=== PATIENT | male | born 1935 | race Caucasian/White ===

== ENCOUNTER 2022-02-18 16:09 | Inpatient (IN) ==
[2022-02-18 16:40] LABS: POC Blood Urea Nitrogen 41 (6-20); POC Calcium, Ionized 1.08 (1.16-1.32); POC Chloride 87 (96-108); POC Creatinine 3.9 (0.6-1.2); POC Glucose, Random > 700 (70-105); POC Potassium 3.3 (3.3-5.1); POC Sodium 127 (133-145)
[2022-02-18] MEDS ORDERED: 0.9 % SODIUM CHLORIDE 1,000 ML IV ONE ×2 (16:45→17:04)
[2022-02-18 18:03] LABS: Basophils # (Auto) 0.03 K/mcL (0.00-0.30); Basophils % (Auto) 0.3 % (0.0-2.0); Eosinophils # (Auto) 0.11 K/mcL (0.00-0.70); Eosinophils % (Auto) 1.2 % (0.0-7.0); Hematocrit 34.7 % (40.1-51.0); Hemoglobin 12.8 g/dL (13.7-17.5); Lymphocytes # (Auto) 0.96 K/mcL (1.50-4.80); Lymphocytes % (Auto) 10.5 % (15.5-49.0); Mean Cell Volume 102.4 fL (80.0-100.0); Mean Corpuscular HGB Conc 36.9 g/dL (31.0-36.0); Mean Platelet Volume 9.8 fL (7.4-10.4); Monocytes # (Auto) 0.43 K/mcL (0.10-0.90); Monocytes % (Auto) 4.7 % (1.0-12.0); Platelet Count 590 K/mcL (140-440); RBC 3.39 M/mcL (4.63-6.08); Red Cell Distribution Width 13.4 % (11.5-14.5); WBC 9.2 K/mcL (4.5-11.0)
--- NOTE | 2022-02-18 18:03 | Emergency Department Note ---
HPI General Chief complaint: Blood Sugar Problem Stated complaint: high blood sugar Time Seen by Provider: 02/18/22 16:44 Source: patient Mode of arrival: ambulatory Limitations: no limitations History of Present Illness HPI Narrative: Narrative: Patient presents ED with complaints of generalized weakness for the past 4 days. Patient that he just does not feel like himself. He denies fever, chills, nausea, vomiting, abdominal pain, cardiac chest pain, heart palpitations, shortness of breath, cough, sputum production, diarrhea, dysuria, hematuria, urinary frequency. He denies [id number] medication. He denies any other alleviating or aggravating factors. Related Data Home Medications Medication Instructions Recorded Confirmed omeprazole 20 mg capsule,delayed 20 mg PO .QDAY before a meal 01/17/15 02/18/22 release aspirin 81 mg tablet,delayed 81 mg PO QDAY 11/25/16 02/18/22 release (Aspir-) hydroxyurea 500 mg capsule 500 mg PO .COMPLEX 12/30/18 02/18/22 Previous Rx's Medication Instructions Recorded hydrochlorothiazide 25 mg tablet 25 mg PO QDAY #90 tabs 08/23/21 lorazepam 1 mg tablet See Rx Instructions .Route 12/03/21 .COMPLEX #60 tabs levothyroxine 50 mcg tablet 50 mcg PO QAM #90 tabs 01/02/22 losartan 50 mg tablet 50 mg PO QDAY #90 tabs 01/02/22 Allergies Allergy/AdvReac Type Severity Reaction Status Date / Time ciprofloxacin [From Cipro] Allergy Unknown Unknown Verified 02/18/22 16:17 hydrocodone Allergy Unknown Unknown Verified 02/18/22 16:17 Imipramine AdvReac Intermediate Other Verified 02/18/22 16:17 oxycodone [From OxyContin] AdvReac Confusion Verified 02/18/22 16:17 Review of Systems ROS ROS Narrative: Narrative: All systems ED: reviewed and negative except as stated. [facility] Narrative Patient History Narrative: Narrative: Medical/Surgical/Family History All Active Problems (Updated 02/18/22 @ 20:23 by Yandy Cruz MD) Hypokalemia (Acute) Acute hyperglycemia (Acute) Hyperosmolar hyperglycemic state (HHS) (Acute) DKA (diabetic ketoacidosis) (Acute) Acute hypokalemia (Acute) Generalized weakness (Acute) Paronychia (Acute) Thrombocytopenia (Chronic) Medicare annual wellness visit, subsequent (Acute) 23-polyvalent pneumococcal polysaccharide vaccine declined (Chronic) Refused influenza vaccine (Chronic) Hypothyroid (Chronic) Nephrolithiasis (Acute) Kidney stone (Acute) Urinary tract infection (Acute) Urolithiasis (Acute) Urolithiasis (Acute) Ureteral calculus (Acute) Prostate cancer (Chronic) Osteoarthritis (Chronic) Malignant melanoma of skin (Chronic) Kidney stones (Chronic) Hypertension, essential (Chronic) Hyperlipidemia (Chronic) Gastroesophageal reflux (Chronic) History of colonic polyps (Chronic) Basal cell carcinoma (Chronic) Anxiety disorder (Chronic) Medical History 23-polyvalent pneumococcal polysaccharide vaccine declined Acute renal failure Anxiety disorder Basal cell carcinoma Gastroesophageal reflux History of colonic polyps Hyperlipidemia Hypertension, essential Kidney stone Kidney stones Malignant melanoma of skin Medicare annual wellness visit, subsequent Nephrolithiasis Osteoarthritis Prostate cancer Refused influenza vaccine Thrombocytopenia Ureteral calculus Urinary tract infection Urolithiasis Urolithiasis Surgical History History of colonoscopy (04/29/13) History of radical prostatectomy radiation tx History of skin cancer melanoma L cheek S/P prostatectomy Family History Mother , at 70y Malignant neoplasm of breast Father , at 70y Malignant neoplasm of lung Other Hypertension Kidney stone Prostate cancer Social History Smoking Status: Never smoker Alcohol Intake Frequency: holiday/special occasion only Substance Use: does not use Exam Narrative Narrative: Narrative: General Limitations: no limitations General appearance: Present alert Head Head: Present atraumatic and normocephalic Eye Eye: Present PERRL and EOMI ENT ENT: Present normal oropharynx and mucous membranes dry Neck Neck: Present full ROM; Absent meningismus Respiratory Respiratory: Present normal lung sounds bilaterally; Absent respiratory distress Cardiovascular Cardiovascular: Present regular rate and normal rhythm Adbominal Abdominal: Present soft and normal bowel sounds; Absent tenderness Back Back: Absent CVA tenderness (R) or CVA tenderness (L) Neurological Neurological: Present oriented X3 and normal gait Psychiatric Psychiatric: Present normal affect and normal mood Skin Skin: Present warm (WNL), intact and normal color Course Course Course Narrative: Patient was evaluated for generalized weakness. Labs show that patient's blood sugar was greater than 800. He reviewed denies any history of diabetes. Patient was given IV fluids and 10 units of insulin. His blood sugar did correc t down to about 470. Labs show that he was hypokalemic down to 2.5 so he was started on IV potassium replacement. Case was discussed with hospitalist who has agreed to admit the patient. Plan was discussed with patient and his daughter who is at bedside and they are agreement with plan for admission Reevaluation(s) Reevaluation #1: Patient remains hemodynamic stable. No new complaints at this time Time: 17:36 Consultations Consultation #1: Case discussed with hospitalist will come to evaluate the patient for admission for DKA with hypokalemia Time: 19:47 Vital Signs Vital signs: Vital Signs Temperature 97.7 F 02/18/22 16:15 Pulse Rate 80 02/18/22 16:15 Respiratory Rate 16 02/18/22 16:15 Blood Pressure 143/64 02/18/22 16:15 Pulse Oximetry (%) 97 02/18/22 16:15 Oxygen Delivery Method 02/18/22 16:15 Temperature 98.3 F 02/19/22 00:01 Pulse Rate 70 02/19/22 00:01 Respiratory Rate 21 02/19/22 00:01 Blood Pressure 141/67 02/19/22 00:01 Pulse Oximetry (%) 100 02/19/22 00:01 Oxygen Delivery Method 02/18/22 20:46 MDM MDM Narrative Medical decision making narrative: Narrative: Differential Diagnosis Differential Diagnosis: Sepsis, dehydration, DKA, viral infection Medical Records Medical records reviewed: Yes I reviewed the patient's medical records. Lab Data Lab results reviewed: Yes I reviewed the patient's lab results. Result diagrams: 02/18/22 17:04 02/18/22 19:30 Labs: Lab Results 02/18/22 02/18/22 02/18/22 Range/Units 16:36 16:39 17:04 WBC 9.2 (4.5-11.0) K/mcL RBC 3.39 L (4.63-6.08) M/mcL Hgb 12.8 L (13.7-17.5) g/dL Hct 34.7 L (40.1-51.0) % POC Hct 39.0 L (41-55) MCV 102.4 H (80.0-100.0) fL MCH 37.8 H (26.0-34.0) pg MCHC 36.9 H (31.0-36.0) g/dL RDW 13.4 (11.5-14.5) % Plt Count 590 H (140-440) K/mcL MPV 9.8 (7.4-10.4) fL Immature Gran % (Auto) 0.3 (0.0-0.5) % Neut % (Auto) 83.0 H (38.0-78.0) % Lymph % (Auto) 10.5 L (15.5-49.0) % Troup % (Auto) 4.7 (1.0-12.0) % Eos % (Auto) 1.2 (0.0-7.0) % Baso % (Auto) 0.3 (0.0-2.0) % Lymph # (Auto) 0.96 L (1.50-4.80) K/mcL Troup # (Auto) 0.43 (0.10-0.90) K/mcL Eos # (Auto) 0.11 (0.00-0.70) K/mcL Baso # (Auto) 0.03 (0.00-0.30) K/mcL Immature Gran # 0.03 (0.00-0.05) K/mcl Absolute Neutrophils 7.63 (1.80-8.00) K/mcL POC VBG pH 7.45 H (7.32-7.42) POC VBG pCO2 at Temp 40.4 L (41-51) POC VBG pO2 40 (25-40) POC VBG HCO3 28.0 (24-28) POC VBG Total CO2 29.0 (25-29) POC Venous O2 Sat 77.0 H (40-70) POC VBG Base Excess 4.0 H* (-2-2) VBG Lactic Acid 2.1 H (0.5-2) POC Sodium 127 L (133-145) Sodium (133-145) mmol/L POC Potassium 3.3 (3.3-5.1) Potassium (3.3-5.1) mmol/L POC Chloride 87 L (96-108) Chloride (96-108) mmol/L Carbon Dioxide (22-30) mmol/L POC Total CO2 30.0 (22-30) Anion Gap (8.0-16.0) POC BUN 41 H (6-20) BUN (8-23) mg/dL Creatinine (0.7-1.2) mg/dL POC Creatinine 3.9 H (0.6-1.2) GFR Calculation Glucose (70-105) mg/dL POC Glucose > 700 H* (70-105) Hemoglobin A1c (4.0-6.0) % Hgb Estim Average Glucose mg/dL Osmolality (280-300) mOSM/kg Calcium (8.6-10.4) mg/dL POC WB Ioniz Calcium 1.08 L (1.16-1.32) Magnesium (1.6-2.5) mg/dL Total Bilirubin (0.1-1.0) mg/dL AST (<40) U/L ALT (<40) U/L Alkaline Phosphatase (39-117) U/L Total Protein (5.9-8.4) gm/dL Albumin (3.2-5.2) gm/dL Globulin (2.2-3.7) gm/dL Albumin/Globulin Ratio (1.0-2.3) 02/18/22 02/18/22 02/18/22 Range/Units 17:04 17:04 19:15 WBC (4.5-11.0) K/mcL RBC (4.63-6.08) M/mcL Hgb (13.7-17.5) g/dL Hct (40.1-51.0) % POC Hct (41-55) MCV (80.0-100.0) fL MCH (26.0-34.0) pg MCHC (31.0-36.0) g/dL RDW (11.5-14.5) % Plt Count (140-440) K/mcL MPV (7.4-10.4) fL Immature Gran % (Auto) (0.0-0.5) % Neut % (Auto) (38.0-78.0) % Lymph % (Auto) (15.5-49.0) % Troup % (Auto) (1.0-12.0) % Eos % (Auto) (0.0-7.0) % Baso % (Auto) (0.0-2.0) % Lymph # (Auto) (1.50-4.80) K/mcL Troup # (Auto) (0.10-0.90) K/mcL Eos # (Auto) (0.00-0.70) K/mcL Baso # (Auto) (0.00-0.30) K/mcL Immature Gran # (0.00-0.05) K/mcl Absolute Neutrophils (1.80-8.00) K/mcL POC VBG pH 7.35 (7.32-7.42) POC VBG pCO2 at Temp 47.8 (41-51) POC VBG pO2 19 L (25-40) POC VBG HCO3 26.1 (24-28) POC VBG Total CO2 28.0 (25-29) POC Venous O2 Sat 27.0 L (40-70) POC VBG Base Excess 0 (-2-2) VBG Lactic Acid 2.2 H (0.5-2) POC Sodium (133-145) Sodium 125 L (133-145) mmol/L POC Potassium (3.3-5.1) Potassium 3.6 (3.3-5.1) mmol/L POC Chloride (96-108) Chloride 83 L (96-108) mmol/L Carbon Dioxide 26 (22-30) mmol/L POC Total CO2 (22-30) Anion Gap 16.0 (8.0-16.0) POC BUN (6-20) BUN 35 H (8-23) mg/dL Creatinine 2.1 H (0.7-1.2) mg/dL POC Creatinine (0.6-1.2) GFR Calculation 28 Glucose 747 H* (70-105) mg/dL POC Glucose (70-105) Hemoglobin A1c 12.4 H (4.0-6.0) % Hgb Estim Average Glucose 309 mg/dL Osmolality (280-300) mOSM/kg Calcium 9.4 (8.6-10.4) mg/dL POC WB Ioniz Calcium (1.16-1.32) Magnesium (1.6-2.5) mg/dL Total Bilirubin 0.7 (0.1-1.0) mg/dL AST 30 (<40) U/L ALT 27 (<40) U/L Alkaline Phosphatase 152 H (39-117) U/L Total Protein 7.5 (5.9-8.4) gm/dL Albumin 3.9 (3.2-5.2) gm/dL Globulin 3.6 (2.2-3.7) gm/dL Albumin/Globulin Ratio 1.1 (1.0-2.3) 02/18/22 02/18/22 02/18/22 Range/Units 19:19 19:30 19:30 WBC (4.5-11.0) K/mcL RBC (4.63-6.08) M/mcL Hgb (13.7-17.5) g/dL Hct (40.1-51.0) % POC Hct 36.0 L (41-55) MCV (80.0-100.0) fL MCH (26.0-34.0) pg MCHC (31.0-36.0) g/dL RDW (11.5-14.5) % Plt Count (140-440) K/mcL MPV (7.4-10.4) fL Immature Gran % (Auto) (0.0-0.5) % Neut % (Auto) (38.0-78.0) % Lymph % (Auto) (15.5-49.0) % Troup % (Auto) (1.0-12.0) % Eos % (Auto) (0.0-7.0) % Baso % (Auto) (0.0-2.0) % Lymph # (Auto) (1.50-4.80) K/mcL Troup # (Auto) (0.10-0.90) K/mcL Eos # (Auto) (0.00-0.70) K/mcL Baso # (Auto) (0.00-0.30) K/mcL Immature Gran # (0.00-0.05) K/mcl Absolute Neutrophils (1.80-8.00) K/mcL POC VBG pH (7.32-7.42) POC VBG pCO2 at Temp (41-51) POC VBG pO2 (25-40) POC VBG HCO3 (24-28) POC VBG Total CO2 (25-29) POC Venous O2 Sat (40-70) POC VBG Base Excess (-2-2) VBG Lactic Acid (0.5-2) POC Sodium 134 (133-145) Sodium 130 L (133-145) mmol/L POC Potassium 2.5 L* (3.3-5.1) Potassium 3.1 L (3.3-5.1) mmol/L POC Chloride 94 L (96-108) Chloride 93 L (96-108) mmol/L Carbon Dioxide 23 (22-30) mmol/L POC Total CO2 27.0 (22-30) Anion Gap 14.0 (8.0-16.0) POC BUN 33 H (6-20) BUN 34 H (8-23) mg/dL Creatinine 2.0 H (0.7-1.2) mg/dL POC Creatinine 2.7 H (0.6-1.2) GFR Calculation 29 Glucose 498 H* (70-105) mg/dL POC Glucose 477 H* (70-105) Hemoglobin A1c (4.0-6.0) % Hgb Estim Average Glucose mg/dL Osmolality (280-300) mOSM/kg Calcium 8.6 (8.6-10.4) mg/dL POC WB Ioniz Calcium 1.09 L (1.16-1.32) Magnesium 2.3 (1.6-2.5) mg/dL Total Bilirubin (0.1-1.0) mg/dL AST (<40) U/L ALT (<40) U/L Alkaline Phosphatase (39-117) U/L Total Protein (5.9-8.4) gm/dL Albumin (3.2-5.2) gm/dL Globulin (2.2-3.7) gm/dL Albumin/Globulin Ratio (1.0-2.3) 02/18/22 Range/Units 20:00 WBC (4.5-11.0) K/mcL RBC (4.63-6.08) M/mcL Hgb (13.7-17.5) g/dL Hct (40.1-51.0) % POC Hct (41-55) MCV (80.0-100.0) fL MCH (26.0-34.0) pg MCHC (31.0-36.0) g/dL RDW (11.5-14.5) % Plt Count (140-440) K/mcL MPV (7.4-10.4) fL Immature Gran % (Auto) (0.0-0.5) % Neut % (Auto) (38.0-78.0) % Lymph % (Auto) (15.5-49.0) % Troup % (Auto) (1.0-12.0) % Eos % (Auto) (0.0-7.0) % Baso % (Auto) (0.0-2.0) % Lymph # (Auto) (1.50-4.80) K/mcL Troup # (Auto) (0.10-0.90) K/mcL Eos # (Auto) (0.00-0.70) K/mcL Baso # (Auto) (0.00-0.30) K/mcL Immature Gran # (0.00-0.05) K/mcl Absolute Neutrophils (1.80-8.00) K/mcL POC VBG pH (7.32-7.42) POC VBG pCO2 at Temp (41-51) POC VBG pO2 (25-40) POC VBG HCO3 (24-28) POC VBG Total CO2 (25-29) POC Venous O2 Sat (40-70) POC VBG Base Excess (-2-2) VBG Lactic Acid (0.5-2) POC Sodium (133-145) Sodium (133-145) mmol/L POC Potassium (3.3-5.1) Potassium (3.3-5.1) mmol/L POC Chloride (96-108) Chloride (96-108) mmol/L Carbon Dioxide (22-30) mmol/L POC Total CO2 (22-30) Anion Gap (8.0-16.0) POC BUN (6-20) BUN (8-23) mg/dL Creatinine (0.7-1.2) mg/dL POC Creatinine (0.6-1.2) GFR Calculation Glucose (70-105) mg/dL POC Glucose (70-105) Hemoglobin A1c (4.0-6.0) % Hgb Estim Average Glucose mg/dL Osmolality 310 H (280-300) mOSM/kg Calcium (8.6-10.4) mg/dL POC WB Ioniz Calcium (1.16-1.32) Magnesium (1.6-2.5) mg/dL Total Bilirubin (0.1-1.0) mg/dL AST (<40) U/L ALT (<40) U/L Alkaline Phosphatase (39-117) U/L Total Protein (5.9-8.4) gm/dL Albumin (3.2-5.2) gm/dL Globulin (2.2-3.7) gm/dL Albumin/Globulin Ratio (1.0-2.3) Core Measures AMI Core Measures Followed: Yes Discharge Plan Patient/Caregiver Discharge Instructions Pt seen by EQUIPMENT OPERATOR/PA only: No Clinical Impression: Acute hypokalemia, Generalized weakness DKA (diabetic ketoacidosis) Qualifiers: Diabetes mellitus type: other specified (including ALEJANDRO) Diabetes mellitus complication detail: without coma Qualified Code(s): E13.10 - 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
[2022-02-18 18:23] LABS: ALT/SGPT 27 U/L (<40); AST/SGOT 30 U/L (<40); Albumin 3.9 gm/dL (3.2-5.2); Albumin/Globulin Ratio 1.1 (1.0-2.3); Alkaline Phosphatase 152 U/L (39-117); Bilirubin,Total 0.7 mg/dL (0.1-1.0); Blood Urea Nitrogen 35 mg/dL (8-23); Calcium 9.4 mg/dL (8.6-10.4); Carbon Dioxide 26 mmol/L (22-30); Chloride 83 mmol/L (96-108); Globulin 3.6 gm/dL (2.2-3.7); Glomerular Filtration Rate 28; Glucose 747 mg/dL (70-105)
[2022-02-18] MEDS ORDERED: INSULIN REGULAR, HUMAN 1 UNIT/0.01 ML UNIT IV ONE (18:27)
[2022-02-18 19:24] LABS: POC Calcium, Ionized 1.09 (1.16-1.32); POC Creatinine 2.7 (0.6-1.2); POC Potassium 2.5 (3.3-5.1)
[2022-02-18] MEDS ORDERED: POTASSIUM CHLORIDE 20 MEQ in DEXTROSE 5% IN WATER 250 ML IV ONE (19:31)
[2022-02-18 19:56] LABS: Hemoglobin A1C 12.4 % Hgb (4.0-6.0)
[2022-02-18] MEDS ORDERED: POTASSIUM CHLORIDE 20 MEQ/10 ML VIAL IV ONE (20:05)
--- NOTE | 2022-02-18 20:25 | Internal Med History&Physical ---
HPI History of Present Illness Patient information: Note initiated : 02/18/22 at 8:17 pm Service Date, if different from initiated Date: [] Patient: Caitlin Troy a 86 y/o M admitted on for high blood sugar. Chief Complaint: [Severe hyperglycemia] Chief complaint: HONK History of present illness: Mr. Troy is a 86 year old M with a past medical history significant for hypertension, hypothyroidism, BPH, and polycythemia vera who presents to the hospital with 3-week history of polydipsia, polyuria, inappetence, and malaise. The patient's states that his condition recently deteriorated. Surprisingly, he just had his annual physical exam with his primary care physician approximately 1 month ago and his labs were unrevealing. The patient decided to call his daughter this morning who is an RN at our hospital and told her that he was feeling unwell. He was brought to the minor care clinic and had his labs drawn and was found to have multiple electrolyte derangements and severe hyperglycemia with a blood sugar of 859. The patient was given IV fluids and IV insulin in the ER. His blood sugar was able to come down to 477. There is no evidence of seizure-like activity or encephalopathy. On arrival he was hemodynamically stable and afebrile without tachycardia. His blood pressure was 140/83, heart rate of 70, and O2 sat of 100% on ambient air. The hospitalist service was asked admit the patient for further management and evaluation of his HONK. Review of Systems All systems: reviewed and no additional remarkable complaints except as stated Constitutional Constitutional: Present as per HPI EENT Eyes: Present as per HPI; Absent blurry vision Cardiovascular Cardiovascular: Present as per HPI; Absent chest pain, dyspnea, dyspnea on exertion, leg edema or palpatations Respiratory Respiratory: Present as per HPI; Absent cough, dyspnea, dyspnea on exertion, wheezing or stridor Gastrointestinal Gastrointestinal: Present as per HPI; Absent abdominal pain, diarrhea, dysphagia, hematemesis, melena, nausea or vomiting Musculoskeletal Musculoskeletal: Present as per HPI; Absent joint swelling, limited range of motion, muscle cramps, muscle weakness or myalgias Integumentary Integumentary: Present as per HPI; Absent erythema, new lesions, rash or wounds Neurological Neurological: Present as per HPI; Absent abnormal gait, behavioral changes, focal weakness, headache(s), loss of vision, numbness, sensory deficit or syncope Endocrine Endocrine: Absent change in body appearance, fatigue or heat intolerance Hematologic/Lymphatic Hematologic/Lymphatic: Present as per HPI PFSH PFSH All Active Problems (Updated 02/18/22 @ 20:23 by Yandy Cruz MD) Hypokalemia (Acute) Acute hyperglycemia (Acute) Hyperosmolar hyperglycemic state (HHS) (Acute) DKA (diabetic ketoacidosis) (Acute) Acute hypokalemia (Acute) Generalized weakness (Acute) Paronychia (Acute) Thrombocytopenia (Chronic) Medicare annual wellness visit, subsequent (Acute) 23-polyvalent pneumococcal polysaccharide vaccine declined (Chronic) Refused influenza vaccine (Chronic) Hypothyroid (Chronic) Nephrolithiasis (Acute) Kidney stone (Acute) Urinary tract infection (Acute) Urolithiasis (Acute) Urolithiasis (Acute) Ureteral calculus (Acute) Prostate cancer (Chronic) Osteoarthritis (Chronic) Malignant melanoma of skin (Chronic) Kidney stones (Chronic) Hypertension, essential (Chronic) Hyperlipidemia (Chronic) Gastroesophageal reflux (Chronic) History of colonic polyps (Chronic) Basal cell carcinoma (Chronic) Anxiety disorder (Chronic) Medical History 23-polyvalent pneumococcal polysaccharide vaccine declined Acute renal failure Anxiety disorder Basal cell carcinoma Gastroesophageal reflux History of colonic polyps Hyperlipidemia Hypertension, essential Kidney stone Kidney stones Malignant melanoma of skin Medicare annual wellness visit, subsequent Nephrolithiasis Osteoarthritis Prostate cancer Refused influenza vaccine Thrombocytopenia Ureteral calculus Urinary tract infection Urolithiasis Urolithiasis Surgical History History of colonoscopy (04/29/13) History of radical prostatectomy radiation tx History of skin cancer melanoma L cheek S/P prostatectomy Family History Mother , at 70y Malignant neoplasm of breast Father , at 70y Malignant neoplasm of lung Other Hypertension Kidney stone Prostate cancer Social History adopted: No caregiver/support person: No foster care: No household members: spouse housing: house lives independently: Yes marital status: education level: high school service: Yes service: other details: Honorable Discharge [facility] branch: [facility] custodial: No 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 pets and animals: No hx recent travel: Yes details: Shyla Pressley (with in [place] ) sexually active: Yes other: children 3/3gc well-balanced diet: daily or most days physical activity: walking frequency: 5-6 times per week smoking status: Never smoker alcohol intake frequency: holiday/special occasion only substance use type: does not use yefri/spiritism: Judaism special yefri needs: No seatbelt use: always drive intox or ride w/ intox 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: No victim of physical abuse: No victim of emotional abuse: No victim of sexual abuse: No MEDS/ALLERGIES Home Medications and Allergies Home Medications Medication Instructions Recorded Confirmed Type omeprazole 20 mg capsule,delayed 20 mg PO .QDAY before a meal 01/17/15 02/18/22 History release aspirin 81 mg tablet,delayed 81 mg PO QDAY 11/25/16 02/18/22 History release (Aspir-) hydroxyurea 500 mg capsule 500 mg PO .COMPLEX 12/30/18 02/18/22 History hydrochlorothiazide 25 mg tablet 25 mg PO QDAY #90 tabs 08/23/21 02/18/22 Rx lorazepam 1 mg tablet See Rx Instructions .Route 12/03/21 02/18/22 Rx .COMPLEX #60 tabs levothyroxine 50 mcg tablet 50 mcg PO QAM #90 tabs 01/02/22 02/18/22 Rx losartan 50 mg tablet 50 mg PO QDAY #90 tabs 01/02/22 02/18/22 Rx Allergies Allergy/AdvReac Type Severity Reaction Status Date / Time ciprofloxacin [From Cipro] Allergy Unknown Unknown Verified 02/18/22 16:17 hydrocodone Allergy Unknown Unknown Verified 02/18/22 16:17 Imipramine AdvReac Intermediate Other Verified 02/18/22 16:17 oxycodone [From OxyContin] AdvReac Confusion Verified 02/18/22 16:17 EXAM Constitutional Vitals: Temp Pulse Resp BP Pulse Ox O2 Del Method 97.7 F 70 18 140/83 100 02/18/22 16:15 02/18/22 19:41 02/18/22 16:43 02/18/22 19:41 02/18/22 19:41 02/18/22 16:43 General appearance: average body habitus Head Head exam: Present atraumatic, normal inspection and normocephalic Eye Eye exam: Present EOMI, normal appearance and PERRL; Absent conjunctival injection ENT ENT exam: Present mucous membranes dry Neck Neck exam: Present full ROM; Absent lymphadenopathy Respiratory Respiratory exam: Present normal respiratory exam and CTAB; Absent decreased breath sounds, respiratory distress or wheezes Cardiovascular Cardiovascular exam: Present normal rate and rhythm and RRR; Absent JVD GI/Abdominal GI/Abdominal exam: Present normal bowel sounds and soft; Absent diminished bowel sounds, distended, guarding, mass, rebound or tenderness Neurological Exam Neurological exam: Present alert, CN II-XII intact and oriented X3 Psychiatric Psychiatric exam: Present normal affect and normal mood Skin Skin exam: Present intact and warm; Absent erythema, pallor, petechiae or rash DATA Data Completed and Pending Labs: Labs from last 24 hours 02/18/22 02/18/22 02/18/22 20:00 19:30 19:19 WBC RBC Hgb Hct POC Hct 36.0 L MCV MCH MCHC RDW Plt Count MPV Immature Gran % (Auto) Neut % (Auto) Lymph % (Auto) [place] % (Auto) Eos % (Auto) Baso % (Auto) Lymph # (Auto) [place] # (Auto) Eos # (Auto) Baso # (Auto) Immature Gran # Absolute Neutrophils POC VBG pH POC VBG pCO2 at Temp POC VBG pO2 POC VBG HCO3 POC VBG Total CO2 POC Venous O2 Sat POC VBG Base Excess VBG Lactic Acid POC Sodium 134 Sodium POC Potassium 2.5 L* Potassium POC Chloride 94 L Chloride Carbon Dioxide POC Total CO2 27.0 Anion Gap POC BUN 33 H BUN Creatinine POC Creatinine 2.7 H GFR Calculation Glucose POC Glucose 477 H* Hemoglobin A1c Estim Average Glucose Osmolality Pending Calcium POC WB Ioniz Calcium 1.09 L Magnesium 2.3 Total Bilirubin AST ALT Alkaline Phosphatase Total Protein Albumin Globulin Albumin/Globulin Ratio 02/18/22 02/18/22 02/18/22 19:15 17:04 17:04 WBC RBC Hgb Hct POC Hct MCV MCH MCHC RDW Plt Count MPV Immature Gran % (Auto) Neut % (Auto) Lymph % (Auto) [place] % (Auto) Eos % (Auto) Baso % (Auto) Lymph # (Auto) [place] # (Auto) Eos # (Auto) Baso # (Auto) Immature Gran # Absolute Neutrophils POC VBG pH 7.35 POC VBG pCO2 at Temp 47.8 POC VBG pO2 19 L POC VBG HCO3 26.1 POC VBG Total CO2 28.0 POC Venous O2 Sat 27.0 L POC VBG Base Excess 0 VBG Lactic Acid 2.2 H POC Sodium Sodium 125 L POC Potassium Potassium 3.6 POC Chloride Chloride 83 L Carbon Dioxide 26 POC Total CO2 Anion Gap 16.0 POC BUN BUN 35 H Creatinine 2.1 H POC Creatinine GFR Calculation 28 Glucose 747 H* POC Glucose Hemoglobin A1c 12.4 H Estim Average Glucose 309 Osmolality Calcium 9.4 POC WB Ioniz Calcium Magnesium Total Bilirubin 0.7 AST 30 ALT 27 Alkaline Phosphatase 152 H Total Protein 7.5 Albumin 3.9 Globulin 3.6 Albumin/Globulin Ratio 1.1 02/18/22 02/18/22 02/18/22 17:04 16:39 16:36 WBC 9.2 RBC 3.39 L Hgb 12.8 L Hct 34.7 L POC Hct 39.0 L MCV 102.4 H MCH 37.8 H MCHC 36.9 H RDW 13.4 Plt Count 590 H MPV 9.8 Immature Gran % (Auto) 0.3 Neut % (Auto) 83.0 H Lymph % (Auto) 10.5 L [place] % (Auto) 4.7 Eos % (Auto) 1.2 Baso % (Auto) 0.3 Lymph # (Auto) 0.96 L [place] # (Auto) 0.43 Eos # (Auto) 0.11 Baso # (Auto) 0.03 Immature Gran # 0.03 Absolute Neutrophils 7.63 POC VBG pH 7.45 H POC VBG pCO2 at Temp 40.4 L POC VBG pO2 40 POC VBG HCO3 28.0 POC VBG Total CO2 29.0 POC Venous O2 Sat 77.0 H POC VBG Base Excess 4.0 H* VBG Lactic Acid 2.1 H POC Sodium 127 L Sodium POC Potassium 3.3 Potassium POC Chloride 87 L Chloride Carbon Dioxide POC Total CO2 30.0 Anion Gap POC BUN 41 H BUN Creatinine POC Creatinine 3.9 H GFR Calculation Glucose POC Glucose > 700 H* Hemoglobin A1c Estim Average Glucose Osmolality Calcium POC WB Ioniz Calcium 1.08 L Magnesium Total Bilirubin AST ALT Alkaline Phosphatase Total Protein Albumin Globulin Albumin/Globulin Ratio A/P Assessment and plan (1) Acute hypokalemia: Status: Acute (2) Generalized weakness: Status: Acute (3) Hypothyroid: Status: Chronic Qualifiers: Hypothyroidism type: acquired Qualified Code(s): E03.9 - Hypothyroidism, unspecified (4) Hypertension, essential: Status: Chronic (5) Hyperosmolar hyperglycemic state (HHS): Status: Acute (6) Acute hyperglycemia: Status: Acute (7) Hypokalemia: Status: Acute Narrative A/P Narrative: The patient likely has undiagnosed diabetes mellitus type 2 which resulted in hyperosmolar hyperglycemic state. There was no underlying precipitant such as an infection discovered. Hyperglycemia likely lead to osmotic diuresis and volume depletion. He was found to have a glucose of greater than 600, serum osmolality is pending, and his pH is greater than 7.3 with absent or minimal ketones. We will treat similar as DKA with insulin infusion as well as aggressive IV fluid resuscitation. His electrolytes will be monitored closely and repleted. Time Spent With Patient Time: Total time spent is greater than 50% in coordination of care (as documented) at patient's floor/unit and/or counseling patient: Total time spent with greater than 50% in coordination of care (as documented) at patient's floor/unit and/or counseling patient:: Greater than 70 minutes Critical Care Time: Yes Total Critical Care Time: 30
[2022-02-18] MEDS ORDERED: LACTULOSE 20 GM/30 ML ORAL.SOL PO PRN (20:46)
[2022-02-18] MEDS ORDERED: SENNOSIDES 1 TABLET PO PRN (20:46)
[2022-02-18] MEDS ORDERED: INSULIN REGULAR, HUMAN 50 UNIT in 0.9 % SODIUM CHLORIDE 99.5 ML IV SCH (20:46)
[2022-02-18] MEDS ORDERED: ONDANSETRON 4 MG/2 ML VIAL IV PRN (20:46)
[2022-02-18] MEDS ORDERED: ACETAMINOPHEN 325 MG TABLET PO PRN (20:46)
[2022-02-18 22:00] LABS: Blood Urea Nitrogen 34 mg/dL (8-23); Calcium 8.6 mg/dL (8.6-10.4); Carbon Dioxide 23 mmol/L (22-30); Chloride 93 mmol/L (96-108); Glomerular Filtration Rate 29; Glucose 498 mg/dL (70-105)
[2022-02-18] MEDS: LACTATED RINGERS 1,000 ML IV SCH (22:12)
[2022-02-18] MEDS: DOCUSATE SODIUM 100 MG CAPSULE PO SCH (22:13)
[2022-02-18] MEDS: 0.9 % SODIUM CHLORIDE 10 ML SYRINGE IV SCH (22:13)
[2022-02-18] MEDS: INSULIN REGULAR, HUMAN 1 UNIT/0.01 ML UNIT ONE ×2 (22:14→22:37)
[2022-02-18] MEDS: LORazepam 1 MG TABLET PO PRN (23:03)
[2022-02-18] MEDS ORDERED: LORazepam 1 MG TABLET ONE (23:09)
[2022-02-19] MEDS ORDERED: INSULIN REGULAR, HUMAN 1 UNIT/0.01 ML UNIT IV PRN
[2022-02-19] MEDS ORDERED: INSULIN REGULAR, HUMAN 1 UNIT/0.01 ML UNIT ONE (00:16)
[2022-02-19] MEDS: LACTATED RINGERS 1,000 ML IV SCH ×2 (02:10→06:11)
[2022-02-19] MEDS: DEXTROSE 5%-LR 1,000 ML IV SCH ×2 (02:12→06:16)
[2022-02-19] MEDS: 0.9 % SODIUM CHLORIDE 10 ML SYRINGE IV SCH ×3 (06:09→20:02)
[2022-02-19] MEDS ORDERED: DEXTROSE 50% 50 ML VIAL IV PRN (06:11)
[2022-02-19] MEDS ORDERED: DEXTROSE 31 GM ORAL.SUSP PO PRN (06:11)
[2022-02-19 07:06] LABS: Blood Urea Nitrogen 25 mg/dL (8-23); Calcium 8.5 mg/dL (8.6-10.4); Carbon Dioxide 27 mmol/L (22-30); Chloride 100 mmol/L (96-108); Glomerular Filtration Rate 42; Glucose 100 mg/dL (70-105)
[2022-02-19] MEDS: POTASSIUM CHLORIDE 20 MEQ TABLET PO SCH ×4 (07:09→21:02)
[2022-02-19] MEDS ORDERED: INSULIN LISPRO 1 UNIT/0.01 ML UNIT SQ SCH ×2 (08:00→11:30)
[2022-02-19] MEDS ORDERED: LACTATED RINGERS 1,000 ML IV SCH (08:30)
[2022-02-19] MEDS ORDERED: POTASSIUM CHLORIDE 40 MEQ in DEXTROSE 5% IN WATER 500 ML IV SCH (08:45)
[2022-02-19] MEDS: LOSARTAN 50 MG TABLET PO SCH ×2 (08:57→09:59)
[2022-02-19] MEDS: ENOXAPARIN 40 MG/0.4 ML SYRINGE SQ SCH (08:57)
[2022-02-19] MEDS: INSULIN GLARGINE, HUMAN 1 UNIT/0.01 ML SQ SCH (08:57)
[2022-02-19] MEDS: DOCUSATE SODIUM 100 MG CAPSULE PO SCH ×2 (08:58→19:59)
[2022-02-19] MEDS ORDERED: INSULIN GLARGINE, HUMAN 1 UNIT/0.01 ML SQ SCH (09:00)
[2022-02-19] MEDS ORDERED: HYDROXYUREA 500 MG CAPSULE PO SCH ×2 (09:00→10:00)
[2022-02-19] MEDS: OMEPRAZOLE 20 MG CAPSULE PO SCH (10:03)
--- NOTE | 2022-02-19 10:52 | Internal Med Progress Note ---
SUBJECTIVE Subjective Patient information: Note initiated : 02/19/22 at 10:50 am Service Date, if different from initiated Date: [] Patient: Caitlin Troy 86 y/o M admitted on 02/18/22 for high blood sugar. Chief Complaint: [Malaise, polydipsia, polyuria] Principal diagnosis: HHS Interval history: The patient is feeling better this morning. He is quite exhausted as he did not get much sleep overnight. Discussed the case with the RN who was present at the bedside. Constitutional Vitals: Vital Signs Temp Pulse Resp BP Pulse Ox O2 Del Method 97.4 F 72 14 144/85 99 02/19/22 08:01 02/19/22 10:01 02/19/22 10:01 02/19/22 10:01 02/19/22 10:01 02/18/22 20:46 Period Temp Pulse Resp BP Sys/Palomo Pulse Ox O2 Del Method O2 Flow Rate Last 24 Hr 97.4 F-98.3 F 63-117 14-21 115-176/59-106 93-100 Room Air-Room Air Intake and Output 02/18/22 02/19/22 02/19/22 21:59 05:59 13:59 Intake Total 2034 1072 1498 Output Total 50 400 450 Balance 1167 269 7168 Weight 91.217 kg Intake & Output: Intake & Output 02/18/22 02/19/22 02/19/22 21:59 05:59 13:59 Intake Total 2034 1072 1498 Output Total 50 400 450 Balance 1433 555 2033 Weight 91.217 kg Intake: IV 2034 1072 1278 Sodium Chloride 0.9% 1,000 ml @ 2000 Wide Open IV BOLUS ONE Rx#: [id number] Dextrose 5%-Lactated Ringers 1, 793 000 ml @ 200 mls/hr IV .Q5H BENSON Rx#:[id number] HumuLIN R 50 UNIT In Sodium 50 2 Chloride 0.9% 99.5 ml @ Per Protocol IV DUR BENSON Rx#: [id number] Lactated Ringers 1,000 ml @ 200 797 483 mls/hr IV .Q5H BENSON Rx#: [id number] Potassium Chloride 20 Meq In 35 225 Dextrose 5% in Water 250 ml @ 130 mls/hr IV ONCE ONE Rx#: [id number] Oral 220 Output: Void Amount 50 400 450 # of times incontinent of urine 0 Other: Urine Appearance Clear Clear Clear Urine Color Bright Yellow Pale Bright Yellow Urine Odor Normal Normal # Voids 0 Head Head exam: Present atraumatic and normal inspection Eye Eye exam: Present normal appearance ENT ENT exam: Present mucous membranes moist, normal exam and normal external ear exam Neck Neck exam: Present normal inspection Respiratory Respiratory exam: Present normal respiratory exam Cardiovascular Cardiovascular exam: Present normal rate and rhythm GI/Abdominal GI/Abdominal exam: Present normal bowel sounds Back Exam Back exam: Present normal inspection Neurological Exam Neurological exam: Present alert and oriented X3 Skin Skin exam: Present intact and warm OBJ DATA Labs CBC & Chem 7: 02/18/22 17:04 02/19/22 05:21 Labs: Abnormal Lab Results 02/19/22 02/18/22 02/18/22 05:21 20:00 19:30 RBC Hgb Hct POC Hct MCV MCH MCHC Plt Count Neut % (Auto) Lymph % (Auto) Lymph # (Auto) POC VBG pH POC VBG pCO2 at Temp POC VBG pO2 POC Venous O2 Sat POC VBG Base Excess VBG Lactic Acid POC Sodium Sodium 130 L POC Potassium Potassium 2.6 L* 3.1 L POC Chloride Chloride 93 L POC BUN BUN 25 H 34 H Creatinine 1.5 H 2.0 H POC Creatinine Glucose 498 H* POC Glucose Hemoglobin A1c Osmolality 310 H Calcium 8.5 L POC WB Ioniz Calcium Alkaline Phosphatase 02/18/22 02/18/22 02/18/22 19:19 19:15 17:04 RBC Hgb Hct POC Hct 36.0 L MCV MCH MCHC Plt Count Neut % (Auto) Lymph % (Auto) Lymph # (Auto) POC VBG pH POC VBG pCO2 at Temp POC VBG pO2 19 L POC Venous O2 Sat 27.0 L POC VBG Base Excess VBG Lactic Acid 2.2 H POC Sodium Sodium POC Potassium 2.5 L* Potassium POC Chloride 94 L Chloride POC BUN 33 H BUN Creatinine POC Creatinine 2.7 H Glucose POC Glucose 477 H* Hemoglobin A1c 12.4 H Osmolality Calcium POC WB Ioniz Calcium 1.09 L Alkaline Phosphatase 02/18/22 02/18/22 02/18/22 17:04 17:04 16:39 RBC 3.39 L Hgb 12.8 L Hct 34.7 L POC Hct MCV 102.4 H MCH 37.8 H MCHC 36.9 H Plt Count 590 H Neut % (Auto) 83.0 H Lymph % (Auto) 10.5 L Lymph # (Auto) 0.96 L POC VBG pH 7.45 H POC VBG pCO2 at Temp 40.4 L POC VBG pO2 POC Venous O2 Sat 77.0 H POC VBG Base Excess 4.0 H* VBG Lactic Acid 2.1 H POC Sodium Sodium 125 L POC Potassium Potassium POC Chloride Chloride 83 L POC BUN BUN 35 H Creatinine 2.1 H POC Creatinine Glucose 747 H* POC Glucose Hemoglobin A1c Osmolality Calcium POC WB Ioniz Calcium Alkaline Phosphatase 152 H 02/18/22 16:36 RBC Hgb Hct POC Hct 39.0 L MCV MCH MCHC Plt Count Neut % (Auto) Lymph % (Auto) Lymph # (Auto) POC VBG pH POC VBG pCO2 at Temp POC VBG pO2 POC Venous O2 Sat POC VBG Base Excess VBG Lactic Acid POC Sodium 127 L Sodium POC Potassium Potassium POC Chloride 87 L Chloride POC BUN 41 H BUN Creatinine POC Creatinine 3.9 H Glucose POC Glucose > 700 H* Hemoglobin A1c Osmolality Calcium POC WB Ioniz Calcium 1.08 L Alkaline Phosphatase Meds: Medications Acetaminophen (Acetaminophen 325 Mg Tablet) 650 mg PO Q6HP PRN; Protocol PRN Reason: Per Pain Protocol/Fever > 101 Last Admin: 02/19/22 07:09 Dose: 650 mg Aspirin (Aspirin 81 Mg Tab.Chew) 81 mg PO QDAY PENDING SALE TO [facility] Dextrose (Dextrose 50% 50 Ml Vial) 0 ml IV UD PRN PRN Reason: Per Sliding Scale Diagnostic Test (Pha) (Accu-Chek 1 Each Strip) 1 each FS ACHS PENDING SALE TO [facility] Docusate Sodium (Docusate Sodium 100 Mg Capsule) 100 mg PO BID PENDING SALE TO [facility] Last Admin: 02/19/22 08:58 Dose: Not Given Enoxaparin Sodium (Enoxaparin 40 Mg/0.4 Ml Syringe) 40 mg SQ DAILY PENDING SALE TO [facility] Last Admin: 02/19/22 08:57 Dose: 40 mg Glucose (Dextrose 31 Gm Oral.Susp) 15 gm PO PRN PRN PRN Reason: Hypoglycemia Hydroxyurea (Hydroxyurea 500 Mg Capsule) 1,000 mg PO MoWeFr@0900 PENDING SALE TO [facility] Hydroxyurea (Hydroxyurea 500 Mg Capsule) 500 mg PO SuTuThSa@0900 PENDING SALE TO [facility] Insulin Human Regular 50 unit/ (Sodium Chloride) 100 mls @ 0 mls/hr IV DUR PENDING SALE TO [facility]; Protocol Last Titration: 02/19/22 06:00 Dose: 0 unit/hr, 0 mls/hr Lactated Ringer's (Lactated Ringers) 1,000 mls @ 100 mls/hr IV .Q10H PENDING SALE TO [facility] Potassium Chloride 40 meq/ (Dextrose) 520 mls @ 130 mls/hr IV 0845 PENDING SALE TO [facility] Stop: 02/19/22 12:00 Last Admin: 02/19/22 08:58 Dose: 130 mls/hr Insulin Glargine (Insulin Glargine, Human 1 Unit/0.01 Ml) 22 unit SQ DAILY PENDING SALE TO [facility] Last Admin: 02/19/22 08:57 Dose: 22 units Insulin Human Lispro (Insulin Lispro 1 Unit/0.01 Ml Unit) 8 unit SQ ACHS PENDING SALE TO [facility] Insulin Human Regular (Insulin Regular, Human 1 Unit/0.01 Ml Unit) 9 unit IV PRN PRN PRN Reason: Blood Sugar - High Last Admin: 02/19/22 00:09 Dose: 9 units Lactulose (Lactulose 20 Gm/30 Ml Oral.Ellie) 10 gm PO DAILYP PRN PRN Reason: Constipation Levothyroxine Sodium (Levothyroxine 50 Mcg Tablet) 50 mcg PO QAM PENDING SALE TO [facility] Lorazepam (Lorazepam 1 Mg Tablet) 1 mg PO HSP PRN PRN Reason: Insomnia Last Admin: 02/18/22 23:03 Dose: 1 mg Omeprazole (Omeprazole 20 Mg Capsule) 20 mg PO 0600 PENDING SALE TO [facility] Last Admin: 02/19/22 10:03 Dose: 20 mg Ondansetron HCl (Ondansetron 4 Mg/2 Ml Vial) 4 mg IV Q4HP PRN; Protocol PRN Reason: Nausea And Vomiting Potassium Chloride (Potassium Chloride 20 Meq Tablet) 40 meq PO TIDCC PENDING SALE TO [facility] Last Admin: 02/19/22 07:09 Dose: 40 meq Senna (Sennosides 1 Tablet) 2 tab PO HSP PRN PRN Reason: Constipation Sodium Chloride (0.9 % Sodium Chloride 10 Ml Syringe) 10 ml IV Q8 PENDING SALE TO [facility] Last Admin: 02/19/22 06:09 Dose: Not Given A/P Assessment and plan (1) Acute hypokalemia: Status: Acute (2) Generalized weakness: Status: Acute (3) Hypothyroid: Status: Chronic Qualifiers: Hypothyroidism type: acquired Qualified Code(s): E03.9 - Hypothyroidism, unspecified (4) Hypertension, essential: Status: Chronic (5) Hyperosmolar hyperglycemic state (HHS): Status: Acute (6) Acute hyperglycemia: Status: Acute (7) Hypokalemia: Status: Acute Narrative A/P Narrative: The patient likely has undiagnosed diabetes mellitus type 2 which resulted in hyperosmolar hyperglycemic state. There was no underlying precipitant such as an infection discovered. Hyperglycemia likely lead to osmotic diuresis and volume depletion. He was found to have a glucose of greater than 600, serum osmolality is pending, and his pH is greater than 7.3 with absent or minimal ketones. We will treat similar as DKA with insulin infusion as well as aggressive IV fluid resuscitation. His electrolytes will be monitored closely and repleted. 02/19: The patient's insulin drip was discontinued this morning at 6 AM. His D5 LR has now been switched to LR at half the rate of 100 cc an hour. His BMP looks much improved and we will continue to replace his potassium aggressively. He is required approximately 45 units of insulin thus far. I have started Lantus 22 units and lispro 8 units 3 times daily with meals. His hemoglobin A1c came back at 12.4%. He will require ongoing diabetic education as he will be discharged on insulin. His home medications were resumed today except for hydrochlorothiazide. Time Spent With Patient Time: Total time spent is greater than 50% in coordination of care (as documented) at patient's floor/unit and/or counseling patient: Total time spent with greater than 50% in coordination of care (as documented) at patient's floor/unit and/or counseling patient:: 35 - 50 minutes Critical Care Time: Yes Total Critical Care Time: 30
[2022-02-19] MEDS: INSULIN LISPRO 1 UNIT/0.01 ML UNIT SQ SCH ×3 (11:49→20:02)
[2022-02-19 14:08] LABS: Blood Urea Nitrogen 22 mg/dL (8-23); Calcium 8.1 mg/dL (8.6-10.4); Carbon Dioxide 25 mmol/L (22-30); Chloride 98 mmol/L (96-108); Glomerular Filtration Rate 45; Glucose 353 mg/dL (70-105)
[2022-02-19 19:50] LABS: Blood Urea Nitrogen 19 mg/dL (8-23); Calcium 8.5 mg/dL (8.6-10.4); Carbon Dioxide 28 mmol/L (22-30); Chloride 99 mmol/L (96-108); Glomerular Filtration Rate 45; Glucose 197 mg/dL (70-105)
[2022-02-19] MEDS ORDERED: LOSARTAN 50 MG TABLET PO SCH ×2 (21:00)
[2022-02-19] MEDS: LORazepam 1 MG TABLET PO PRN (21:03)
[2022-02-20] MEDS: 0.9 % SODIUM CHLORIDE 10 ML SYRINGE IV SCH (05:31)
[2022-02-20] MEDS: OMEPRAZOLE 20 MG CAPSULE PO SCH ×2 (05:31→07:36)
[2022-02-20] MEDS: ENOXAPARIN 40 MG/0.4 ML SYRINGE SQ SCH (08:33)
[2022-02-20] MEDS: INSULIN LISPRO 1 UNIT/0.01 ML UNIT SQ SCH ×2 (08:33→11:55)
[2022-02-20] MEDS: HYDROXYUREA 500 MG CAPSULE PO SCH ×2 (08:34→08:35)
[2022-02-20] MEDS: POTASSIUM CHLORIDE 20 MEQ TABLET PO SCH ×2 (08:34→12:46)
[2022-02-20] MEDS: DOCUSATE SODIUM 100 MG CAPSULE PO SCH (08:34)
[2022-02-20] MEDS ORDERED: LEVOTHYROXINE 50 MCG TABLET PO SCH (09:00)
[2022-02-20] MEDS ORDERED: ASPIRIN 81 MG TAB.CHEW PO SCH (09:00)
--- NOTE | 2022-02-20 10:34 | Discharge Summary ---
Discharge Provider Provider IMPORTANT FOLLOW-UP INFORMATION FOR PCP: 1. HCTZ discontinued 2/2 renal function 2. Diabetic education outpatient 3. Titrate insulin 4. Repeat A1c in 3 months' time. Patient information: Note initiated : 02/20/22 at 10:33 am Service Date, if different from initiated Date: [] Patient: Caitlin Troy 86 y/o M admitted on 02/18/22 for high blood sugar. Chief Complaint: [] Date of admission: 02/18/22 20:42 Discharge date: 02/20/22 Primary care physician: Todd Shook PA-C Consults: 02/18/22 Consult to Physician [CONS] Stat Comment: Consulting Provider: Yandy Cruz Reason For Exam: Physician to Consult Attending physician on discharge: Yandy Cruz COURSE Hospital Course Hospital course: A/P Narrative: The patient likely has undiagnosed diabetes mellitus type 2 which resulted in hyperosmolar hyperglycemic state. There was no underlying precipitant such as an infection discovered. Hyperglycemia likely lead to osmotic diuresis and volume depletion. He was found to have a glucose of greater than 600, serum osmolality is pending, and his pH is greater than 7.3 with absent or minimal ketones. We will treat similar as DKA with insulin infusion as well as aggressive IV fluid resuscitation. His electrolytes will be monitored closely and repleted. 02/19: The patient's insulin drip was discontinued this morning at 6 AM. His D5 LR has now been switched to LR at half the rate of 100 cc an hour. His BMP looks much improved and we will continue to replace his potassium aggressively. He is required approximately 45 units of insulin thus far. I have started Lantus 22 units and lispro 8 units 3 times daily with meals. His hemoglobin A1c came back at 12.4%. He will require ongoing diabetic education as he will be discharged on insulin. His home medications were resumed today except for hydrochlorothiazide. 02/20: The patient's blood sugars are within normal limits and his electrolyte de rangements have resolved. He is feeling much better and his appetite has returned. He will be discharged on Lantus 20 units nightly and lispro 6 units 3 times daily with meals. Continue ongoing diabetic education and further titration of his insulin regimen. Repeat hemoglobin A1c is recommended in 3 months time. Discharge diagnosis: [facility] Time Spent with Patient Time attestation: Total time spent providing and/or coordinating discharge services: Time spent: Greater than 30 minutes EXAM Constitutional Vitals: Temp Pulse Resp BP Pulse Ox O2 Del Method O2 Flow Rate 97.8 F 89 28 H 144/71 96 0 02/20/22 08:06 02/20/22 08:06 02/20/22 08:06 02/20/22 08:06 02/20/22 08:06 02/19/22 18:53 02/20/22 04:09 General appearance: average body habitus Head Head exam: Present atraumatic, normal inspection and normocephalic Eye Eye exam: Present EOMI, normal appearance and PERRL; Absent conjunctival injection ENT ENT exam: Present normal exam; Absent mucous membranes dry Neck Neck exam: Present full ROM; Absent lymphadenopathy Respiratory Respiratory exam: Present normal respiratory exam and CTAB; Absent decreased breath sounds, respiratory distress or wheezes Cardiovascular Cardiovascular exam: Present normal rate and rhythm and RRR; Absent JVD GI/Abdominal GI/Abdominal exam: Present normal bowel sounds and soft; Absent diminished bowel sounds, distended, guarding, mass, rebound or tenderness Neurological Exam Neurological exam: Present alert, CN II-XII intact and oriented X3 Psychiatric Psychiatric exam: Present normal affect and normal mood Skin Skin exam: Present intact and warm; Absent erythema, pallor, petechiae or rash Discharge Data Data Completed and Pending Labs on day of discharge: Labs from last 24 hours 02/19/22 02/19/22 18:50 12:56 Sodium 135 133 Potassium 3.3 4.0 Chloride 99 98 Carbon Dioxide 28 25 Anion Gap 8.0 10.0 BUN 19 22 Creatinine 1.4 H 1.4 H GFR Calculation 45 45 Glucose 197 H 353 H Calcium 8.5 L 8.1 L Discharge Plan Patient/Caregiver Discharge Instructions Activity: increase activity as tolerated Instructions: Type 2 Diabetes in Adults: New Diagnosis (GEN), Hyperosmolar Hyperglycemic State (GEN) Prescriptions: New insulin glargine [Lantus U-100 Insulin] 100 unit/mL Solution 20 unit SQ DAILY 30 Days Qty: 10 0RF insulin lispro [Humalog U-100 Insulin] 100 unit/mL Solution 6 unit SQ ACHS 30 Days Qty: 7.2 0RF Continued lorazepam 1 mg tablet See Rx Instructions .ROUTE .COMPLEX Qty: 60 1RF Dose Instruction: TAKE 1 TABLET PO ONCE DAILY AT BEDTIME Rx Instructions: TAKE 1 TABLET PO ONCE DAILY AT BEDTIME levothyroxine 50 mcg tablet 50 mcg PO QAM Qty: 90 0RF Rx Instructions: Take 30 minutes before food. omeprazole 20 mg capsule,delayed release(DR/EC) 20 mg PO .QDAY before a meal Rx Instructions: swallow whole (do not crush or chew) OR open capsule, sprinkle contents over tablespoonful applesauce; swallow all immediately/do not chew pellets losartan 50 mg tablet 50 mg PO HS aspirin [Aspir-81] 81 mg tablet,delayed release (DR/EC) 81 mg PO QDAY hydroxyurea 500 mg capsule 500 mg PO .COMPLEX Label Comments: 500 mg PO 2 friday, 2 friday, 1 every other day of the week; Rx Instructions: 500 mg PO 2 capsules on Friday, Friday, Friday. 1 capsule on Friday, , Sat, Sun. Discontinued hydrochlorothiazide 25 mg tablet 25 mg PO QDAY Qty: 90 3RF Follow Up Plan Follow up with: Todd Shook PA-C [Primary Care Provider] - 02/26/22 11:30 am (Continue with your currently scheduled appointment. Please check in at 11:15 am.) Patient Disposition: Home, Self-Care Prognosis: Fair Rehab Potential: Good I certify that the patient requires SNF services: No Overall status at discharge: patient is progressing back to baseline Discharge Orders: Discharge Order (Routine); Ordered 02/20/22 Ordered By: Yandy Cruz
[2022-02-20] MEDS: INSULIN GLARGINE, HUMAN 1 UNIT/0.01 ML SQ SCH (10:51)
[2022-02-20] MEDS ORDERED: INSULIN GLARGINE, HUMAN 1 UNIT/0.01 ML SQ SCH (11:00)
[2022-02-20] MEDS ORDERED: METOPROLOL TARTRATE 5 MG/5 ML VIAL IV ONE (11:06)
[2022-02-21] MEDS ORDERED: HYDROXYUREA 500 MG CAPSULE PO SCH (09:00)
== END 2022-02-20 13:52 | disposition home or self-care (01) | DRG 639 ==
LOC: ED 16:09 → ICU 20:42
PROVIDERS: ADMIT Student in an Organized Health Care Education/Training Program; ATTEND Student in an Organized Health Care Education/Training Program